=== PATIENT | female | born 1985 | race Caucasian/White ===

== ENCOUNTER 2019-03-16 22:18 | Emergency (ER) | payer OTHER, SELFPAY ==
[2019-03-16] MEDS ORDERED: predniSONE 20 MG TAB ONE (23:44)
== END 2019-03-16 23:45 | disposition home or self-care (01) ==
LOC: MADERS 22:18
DX: M54.41 Lumbago with sciatica, right side (principal); G43.909 Migraine, unspecified, not intractable, without status migrainosus; F41.9 Anxiety disorder, unspecified; F43.10 Post-traumatic stress disorder, unspecified; Z79.899 Other long term (current) drug therapy
CPT/HCPCS: 99283; J7512